=== PATIENT | male | born 1980 | race Caucasian/White ===

== ENCOUNTER 2021-03-25 01:38 | Emergency (ER) | payer OTHER ==
[~2021-03-25] VITALS: Ht 182.9 cm; Wt 136.1 kg
[2021-03-25] MEDS ORDERED: SUPER THERAVIT1 EACH PO (01:53)
[2021-03-25] MEDS ORDERED: ZYRTEC10 M5 PO (01:53)
[2021-03-25] MEDS ORDERED: HYDROCODON-ACE1 EAC7 PO (03:40)
[2021-03-25] MEDS ORDERED: TORADOL 10 MG T10 MG PO (03:40)
[2021-03-25] MEDS ORDERED: ZOFRAN ODT4 MG PO (03:40)
[2021-03-25] MEDS ORDERED: FLOMAX0.4 MG PO (03:40)
[2021-03-25 04:04] VITALS: BP 137/71
== END 2021-03-25 04:04 | disposition home or self-care (01) ==
LOC: M.ERS 01:38
DX: N23 Unspecified renal colic (principal); Z87.442 Personal history of urinary calculi; Z79.899 Other long term (current) drug therapy